=== PATIENT | female | born 1995 | race African-American/Black ===

== ENCOUNTER 2016-08-10 01:16 | Emergency (ER) | payer OTHER ==
[~2016-08-10] VITALS: Ht 160 cm; Wt 103.4 kg
[~2016-08-10 01:16] MED LIST: ALBUTEROL0.09 MG/A1 INH; FLOVENT HFA12 G1 INH; GENERESS FE 0.01 CTB PO; POLYTRIM EYE DR10 ML OPH
[2016-08-10 01:36] VITALS: BP 125/60
--- NOTE | 2016-08-10 01:57 | ED GI/GU/ABDOMINAL COMPLAINT ---
History of Present Illness General Chief Complaint: Nausea, Vomiting, Diarrhea Stated Complaint: ABD PAIN +N/V/D X'S 2 HRS Source: patient, family Exam Limitations: no limitations Vital Signs & Intake/Output Vital Signs & Intake/Output Vital Signs Date Time Temp Pulse Resp B/P B/P Pulse O2 O2 Flow FiO2 Mean Ox Delivery Rate 08/10 0136 98.6 65 18 125/60 100 Room Air 08/10 0130 100 Room Air Allergies Coded Allergies: NO KNOWN ALLERGIES (09/25/10) Reconcile Medications Albuterol Sulfate (Albuterol Sulfate Hfa) 90 MCG HFA.AER.AD 2 PUFF INH Q4-6 PRN PRN SHORTNESS OF BREATH (Reported) 90 MCG PER PUFF Fluticasone Propionate (Flovent Hfa) 110 MCG/ACTUATION AER.W.ADAP 2 PUF INH BID ASTHMA (Reported) NORETH-ETHINYL ESTRADIOL/IRON ([place] Fe Chewable Tablet) 0.8-25(24) TAB.CHEW 1 TAB PO DAILY CONTROL (Reported) Triage Nurses Notes Reviewed? yes ? N Is pt currently ? No HPI: Patient presents for evaluation of right-sided abdominal pain with nausea that began a few hours ago while at home while lying down. The pain was gradual at that point and the patient thought she might need to have a bowel movement. The pain worsened while she was trying to defecate. She is describing a sharp intermittent right-sided abdominal pain that does not change with eating. She did have one episode of diarrhea and one episode of vomiting. She states she's had prior episodes of right-sided abdominal pain but no etiology has yet to be determined. She denies associated fever, cold symptoms or dysuria. She drinks beer occasionally but denies drug use or cigarette smoking. Family history is positive for gallstones in her biological mother. Nothing seems to make her pain feel better. Past History Medical History Any Pertinent Medical History? see below for history EENT: conjunctiviitis Respiratory: asthma Gastrointestinal: GERD Tetanus Vaccine: 12/20/15 Surgical History Surgical History: none Psychosocial History What is your primary language Slovenian Family History Hx Contributory? No Review of Systems Review of Systems Constitutional: Reports: no symptoms. EENTM: Reports: no symptoms. Respiratory: Reports: no symptoms. Cardiovascular: Reports: no symptoms. GI: Reports: see HPI. Genitourinary: Reports: no symptoms. Musculoskeletal: Reports: no symptoms. Skin: Reports: no symptoms. Neurological/Psychological: Reports: no symptoms. Hematologic/Endocrine: Reports: no symptoms. Immunologic/Allergic: Reports: no symptoms. All Other Systems: Reviewed and Negative Physical Exam Physical Exam Gastrointestinal: SEE BELOW Comments: Gen.: Well-nourished, well-developed, no acute respiratory distress. Overweight. Head: Normocephalic, atraumatic. Eyes: Normal inspection bilaterally Ears: Normal inspection bilaterally Nose: Normal inspection Throat/mouth : Moist mucosa Neck: Supple, full range of motion, no goiter Heart: Regular rate and rhythm, no murmurs rubs or gallops Lungs: Clear to auscultation bilaterally with normal air entry Chest: Nontender Back: Normal range of motion Abdomen: Soft, right upper quadrant abdominal tenderness without rebound or guarding, nondistended, normal bowel sounds Extremities: Normal range of motion grossly, equal radial pulses, no cyanosis clubbing or edema Neurologic: Cranial nerves grossly intact, speech is clear Skin: warm and dry Psychiatric: Calm, cooperative, no apparent delusions or hallucinations Core Measures ACS in differential dx? No Severe Sepsis Present: No Septic Shock Present: No Progress Differential Diagnosis: biliary colic, cholecystitis, diverticulitis Plan of Care: Orders Procedure Date/time Status URINALYSIS 08/11 155 Active LIPASE 08/11 155 Complete HUMAN BETA HCG SCREEN 08/11 155 Complete COMPREHENSIVE METABOLIC PANEL 08/11 155 Complete CBC WITHOUT DIFFERENTIAL 08/11 155 Complete Laboratory Tests 08/10/16 0209: Anion Gap 8, Estimated GFR > 60, BUN/Creatinine Ratio 20.0, Glucose 101 H, Calcium 9.2, Total Bilirubin 0.3, AST 20, ALT 33, Alkaline Phosphatase 48, Total Protein 7.1, Albumin 3.9, Globulin 3.2, Albumin/Globulin Ratio 1.2, Lipase 48, Total Beta HCG NEGATIVE, CBC w Diff NO MAN DIFF REQ, RBC 4.66, MCV 82.6, MCH 26.4 L, RDW 13.2, MPV 8.4, Gran % 72.3, Lymphocytes % 19.8 L, Monocytes % 6.9, Eosinophils % 0.5, Basophils % 0.5, Absolute Granulocytes 7.0 H, Absolute Lymphocytes 1.9, Absolute Monocytes 0.7 H, Absolute Eosinophils 0.1, Absolute Basophils 0, PUBS MCHC 31.9 L Initial ED EKG: none Comments: 08/10/2016 3:00:50 AM patient's pain has improved. She appears more comfortable. Departure Departure Disposition: HOME OR SELF CARE Condition: Stable Clinical Impression Primary Impression: Biliary colic Referrals: NERI BERUMEN,BART [place] (PCP/Family) Additional Instructions: Follow-up with the ultrasound as an outpatient to investigate your gallbladder. Call the radiology department this morning at 8 AM for an appointment time. Arrange for follow-up appointment with your primary care doctor this week for reevaluation. Return if any concerns or sudden worsening. Thank you for choosing the [facility] for your care. It was a pleasure to serve you today. Amado Nuñez M.D. [facility] Departure Forms: Customer Survey General Discharge Information Prescriptions: Current Visit Scripts Ondansetron (Zofran Odt) 1 TAB SL Q6P PRN NAUSEA/VOMITING #10 TAB Hyoscyamine (Levsin) 1-2 TAB PO Q6P PRN ABDOMINAL CRAMPS #20 TAB
[2016-08-10 02:37] LABS: ABSOLUTE BASOPHIL COUNT 0 /CUMM (0.0-0.2); ABSOLUTE EOSINOPHIL COUNT 0.1 /CUMM (0.0-0.7); ABSOLUTE LYMPH COUNT 1.9 /CUMM (1.2-3.4); ABSOLUTE MONOCYTE COUNT 0.7 /CUMM (0.10-0.60); BASOPHIL % 0.5 % (0.0-2.0); EOSINOPHIL % 0.5 % (0-5); GRANULOCYTE % 72.3 % (42.2-75.2); HEMATOCRIT 38.5 % (37-47); MEAN CORPUSCULAR HGB 26.4 PG (27.0-31.0); MEAN CORPUSCULAR HGB CONC 31.9 G/DL (33.0-37.0); MEAN CORPUSCULAR VOLUME 82.6 FL (81.0-99.0); MEAN PLATELET VOLUME 8.4 FL (7.4-10.4); PLATELET COUNT 364 /CUMM (130-400); RBC DISTRIBUTION WIDTH 13.2 % (11.5-14.5); RED BLOOD CELL CT 4.66 /CUMM (4.20-5.40); WHITE BLOOD CELL COUNT 9.7 /CUMM (4.8-10.8)
[2016-08-10] MEDS ORDERED: ZOFRAN ODT4 M1 SL (02:59)
[2016-08-10] MEDS ORDERED: LEVSIN0.125 M1 PO (02:59)
== END 2016-08-10 03:09 ==
LOC: ERH 01:16
PROVIDERS: Emergency Medicine
DX: K80.50 Calculus of bile duct without cholangitis or cholecystitis without obstruction (principal)
CPT/HCPCS: J3101

== ENCOUNTER 2017-10-01 09:07 | Emergency (ER) | payer OTHER ==
[~2017-10-01] VITALS: Ht 160 cm; Wt 104.3 kg
[~2017-10-01 09:07] MED LIST changes: +LEVSIN0.125 M1 PO; +ZOFRAN ODT4 M1 SL
[2017-10-01 09:10] VITALS: BP 140/94
--- NOTE | 2017-10-01 09:29 | ED UPPER/LOWER EXTREMITY COMPL ---
History of Present Illness General Chief Complaint: Lower Extremity Problems Stated Complaint: LEFT KNEE PAIN X 1 WEEK, NKI Source: patient, family, old records Exam Limitations: no limitations Vital Signs & Intake/Output Vital Signs & Intake/Output Vital Signs Date Time Temp Pulse Resp B/P B/P Pulse O2 O2 Flow FiO2 Mean Ox Delivery Rate 10/01 0926 97 Room Air 10/01 0910 98.6 96 20 140/94 96 Room Air Allergies Coded Allergies: NO KNOWN ALLERGIES (09/25/10) Reconcile Medications Albuterol Sulfate (Albuterol Sulfate Hfa) 90 MCG HFA.AER.AD 2 PUFF INH Q4-6 PRN PRN SHORTNESS OF BREATH (Reported) 90 MCG PER PUFF Fluticasone Propionate (Flovent Hfa) 110 MCG/ACTUATION AER.W.ADAP 2 PUF INH BID ASTHMA (Reported) Hyoscyamine (Levsin) 0.125 MG TABLET 1-2 TAB PO Q6P PRN ABDOMINAL CRAMPS NORETH-ETHINYL ESTRADIOL/IRON ([place] Fe Chewable Tablet) 0.8-25(24) TAB.CHEW 1 TAB PO DAILY CONTROL (Reported) Ondansetron (Zofran Odt) 4 MG TAB.RAPDIS 1 TAB SL Q6P PRN NAUSEA/VOMITING Triage Note: PT TO ED C/O LEFT KNEE PAIN X 1.5 WEEKS. DENIES INJURY/DENIES FALLING. TRIED OTC MEDS WITH NO RELIEF. DECLINING MEDS IN TRIAGE. Triage Nurses Notes Reviewed? yes : No Patient currently breastfeeds: No HPI: Patient states that her week ago she was walking and had a sudden onset of pain in her left knee. Patient does not think she twisted it in any way but she is not sure. Patient states that since that she's been having a throbbing pain to the lateral aspect of her left knee that increases when she walks. There is no radiation of the pain. The pain has a constant 2 out of 10 in quality but then increases to 6 out of 10 with ambulation. There is no swelling. There is no numbness or tingling. Past History Travel History Traveled to [place] No Medical History Any Pertinent Medical History? 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 No Review of Systems Review of Systems Constitutional: Reports: no symptoms. Respiratory: Reports: no symptoms. Cardiovascular: Reports: no symptoms. Musculoskeletal: Reports: see HPI, joint pain. Neurological/Psychological: Reports: no symptoms. Immunological: Reports: no symptoms. Physical Exam Physical Exam General Appearance: well developed/nourished, alert, awake Eyes: Bilateral: PERRL, EOMI. Neck: normal inspection, supple, full range of motion Cardiovascular/Respiratory: normal breath sounds, normal peripheral pulses, regular rate/rhythm, no respiratory distress Knee Left: normal range of motion, normal inspection, tenderness Knee Ligaments Left: STABLE Neurologic/Tendon: normal sensation, normal motor functions, responds to pain Progress Differential Diagnosis: contusion, dislocation, sprain, tendon injury Plan of Care: Orders Procedure Date/time Status Durable Medical Equipment 10/01 926 Active Departure Departure Disposition: HOME OR SELF CARE Condition: Stable Clinical Impression Primary Impression: Strain of left knee Referrals: Tomas BERUMEN,Henrry [place] (PCP/Family) Krys BERUMEN,Phillip Additional Instructions: WEAR IMMOBILIZER FOR COMFORT RETURN IF SYMPTOMS WORSEN OR FOR ANY OTHER CONCERNS Departure Forms: Customer Survey General Discharge Information Procedures Splinting Location: LEFT KNEE Manual Alignment Performed: No Pre-Made Type: knee imobilizer Splint: KNEE Splint Applied By: splint applied by other Pre-Proc Neuro Vasc Exam: normal Post-Proc Neuro Vasc Exam: normal
== END 2017-10-01 09:35 ==
LOC: ERH 09:07
DX: S86.912A Strain of unspecified muscle(s) and tendon(s) at lower leg level, left leg, initial encounter (principal); X58.XXXA Exposure to other specified factors, initial encounter; Y93.01 Activity, walking, marching and hiking
CPT/HCPCS: 99282